=== PATIENT | female | born 1980 | race Caucasian/White ===

== ENCOUNTER 2016-04-01 11:20 | Outpatient (CLI) | payer MEDICAID | END 2016-04-01 11:21 | disposition home or self-care (01) | DX: Z36 Encounter for antenatal screening of mother (principal) ==

== ENCOUNTER 2016-04-14 11:15 | Outpatient (CLI) | payer SELFPAY | END 2016-04-14 11:16 | disposition home or self-care (01) | DX: Z36 Encounter for antenatal screening of mother (principal) ==

== ENCOUNTER 2016-05-12 11:41 | Outpatient (CLI) | payer MEDICAID | END 2016-05-12 11:42 | disposition home or self-care (01) | DX: Z34.82 Encounter for supervision of other normal pregnancy, second trimester (principal) ==

== ENCOUNTER 2016-06-02 12:16 | Outpatient (CLI) | payer MEDICAID | END 2016-06-02 12:17 | disposition home or self-care (01) | DX: Z36 Encounter for antenatal screening of mother (principal); O44.42 Low lying placenta NOS or without hemorrhage, second trimester ==

== ENCOUNTER 2016-06-18 15:51 | Emergency (ER) | payer MEDICAID | END 2016-06-18 17:12 | disposition home or self-care (01) | DX: O99.512 Diseases of the respiratory system complicating pregnancy, second trimester (principal); J01.00 Acute maxillary sinusitis, unspecified; Z3A.23 23 weeks gestation of pregnancy; Z77.120 Contact with and (suspected) exposure to mold (toxic) ==

== ENCOUNTER 2016-08-05 13:21 | Outpatient (CLI) | payer MEDICAID ==
[2016-08-05 14:35] LABS: HCT - HEMATOCRIT 36.7 % (37.0-47.0); HGB - HEMOGLOBIN 12.7 g/dL (12.0-16.0); MEAN CORPUSCULAR HEMOGLOBIN 32.4 pg (27.0-31.0); MEAN CORPUSCULAR HGB CONC 34.6 g/dL (32.0-36.0); MEAN CORPUSCULAR VOLUME 93.5 fL (81.0-99.0); MEAN PLATELET VOLUME 7.3 fL (7.9-10.8); RED BLOOD COUNT 3.93 10^6/uL (4.20-5.40); RED CELL DISTRIBUTION WIDTH 13.5 % (12.0-15.0); WHITE BLOOD COUNT 9.7 x10^3/uL (4.8-10.8)
== END 2016-08-05 13:22 | disposition home or self-care (01) ==
LOC: LAB 13:21
PROVIDERS: ATTEND Obstetrics & Gynecology
DX: Z34.90 Encounter for supervision of normal pregnancy, unspecified, unspecified trimester (principal)
CPT/HCPCS: 36415; 82950; 86850

== ENCOUNTER 2016-08-25 11:03 | Outpatient (CLI) | payer MEDICAID ==
--- NOTE | 2016-08-26 10:45 | Ultrasound Report ---
FOLLOWUP OB ULTRASOUND: 08/25/2016 Initial ultrasound was 06/02/2016. CLINICAL HISTORY: Expected gestational age by initial ultrasound is 31.7 weeks. Expected gestational age by LMP is 32.9 weeks. TECHNIQUE: Real-time scanning was performed with utility sales representative static images obtained. LAST MENSTRUAL PERIOD 01/08/2016 Clinical Age 32 weeks 6 days US Age 30 weeks 3 days EFW Hadlock 1526 g EFW% Hadlock 12% Heart Rate 131 bpm EDC 10/14/2016 US EDC 10/31/2016 BPD Hadlock 30 weeks 1 day; Mean mm 75.3 HC Hadlock 30 weeks 4 days; Mean mm 279.1 AC Hadlock 29 weeks 6 days; Mean mm 257.1 FL Hadlock 30 weeks 4 days; Mean mm 58.5 Presentation cephalic Placental Location posterior Cervical Length 3.8 cm Amniotic Fluid 12.18 cm FINDINGS: Single fetus is noted in vertex position. Composite gestational age by ultrasound today is 30.5 weeks. This gestational age is 1.2 weeks less than expected as calculated from patient's initial ultrasound of 06/02/2016. Estimated gestational weight is 15.26 grams. This is in the 10th percentile for expected gestational age. The weight and abdominal circumference parameters are at the very lower limits of normal for expected gestational age. Recommend patient be carefully followed for growth. Suggest a repeat ultrasound in 2-3 weeks for further evaluation. anatomy at the present time shows no significant abnormality. head, body, and spine appear within normal limits. heart was not evaluated in enough detail to accurately comment upon. The bladder was not demonstrated today. Placenta is posterior and low lying. It appears to partially cover the posterior half of the internal os. Recommend the placenta be evaluated with translabial and/or transvaginal ultrasound to exclude partial placenta previa. heart rate is 131 beats per minute and regular. Amount of amniotic fluid is 12.18. This is within the 27th percentile. Largest pocket of amniotic fluid is 4.74 cm. IMPRESSION: 1. SINGLE FETUS IS NOTED IN VERTEX POSITION. COMPOSITE GESTATIONAL AGE BY ULTRASOUND TODAY IS 30.5 WEEKS. THIS GESTATIONAL AGE IS 1.2 WEEKS LESS THAN EXPECTED CALCULATED FROM PATIENT'S PRECEDING ULTRASOUND. ALSO, THE WEIGHT AND ABDOMINAL CIRCUMFERENCE IS AT THE LOWER LIMITS OF NORMAL. RECOMMEND THIS GESTATION BE FOLLOWED CAREFULLY IN TERMS OF GROWTH. SUGGEST A REPEAT ULTRASOUND IN 2-3 WEEKS FOR FURTHER EVALUATION. 2. PLACENTA IS POSTERIOR AND LOW LYING. SOME OF THE IMAGES OF THE PLACENTAL LOCATION TODAY SUGGEST PARTIAL PLACENTA PREVIA DISCUSSED ABOVE. RECOMMEND WHEN PATIENT RETURNS FOR A REPEAT ULTRASOUND THAT THE PLACENTA POSITION BE REEVALUATED WITH TRANSLABIAL OR TRANSVAGINAL ULTRASOUND. 3. AMNIOTIC FLUID VOLUME INDEX IS 12.18. THIS IS WITHIN NORMAL LIMITS. MTDD
== END 2016-08-25 11:04 | disposition home or self-care (01) ==
LOC: DI 11:03
PROVIDERS: ATTEND Obstetrics & Gynecology
DX: Z36 Encounter for antenatal screening of mother (principal); O44.43 Low lying placenta NOS or without hemorrhage, third trimester; Z3A.30 30 weeks gestation of pregnancy
CPT/HCPCS: 76816

== ENCOUNTER 2016-09-01 12:24 | Outpatient (CLI) | payer MEDICAID ==
[2016-09-01 13:21] VITALS: BP 102/67
== END 2016-09-01 13:22 | disposition home or self-care (01) ==
LOC: WFO 12:24 → FBP 12:28 → WFO 13:22
PROVIDERS: ATTEND Obstetrics & Gynecology
DX: O36.8130 Decreased fetal movements, third trimester, not applicable or unspecified (principal); Z3A.34 34 weeks gestation of pregnancy
CPT/HCPCS: 59025

== ENCOUNTER 2016-09-12 11:36 | Outpatient (CLI) | payer MEDICAID ==
--- NOTE | 2016-09-12 13:31 | Ultrasound Report ---
OB FOLLOWUP: 09/12/2016 CLINICAL INDICATION: Size/date discrepancy. TECHNIQUE: Real-time scanning was performed with physician relations representative static images obtained. LAST MENSTRUAL PERIOD 01/08/2016 Clinical Age 35 weeks 3 days US Age 32 weeks 3 days EFW Hadlock 1922 g EFW% Hadlock 3% Heart Rate 146 bpm EDC 10/14/2016 US EDC 11/04/2016 BPD Hadlock 32 weeks 1 day; Mean mm 79.9 HC Hadlock 32 weeks 6 days; Mean mm 296.7 AC Hadlock 31 weeks 0 days; Mean mm 269.4 FL Hadlock 33 weeks 6 days; Mean mm 65.8 Presentation cephalic Placental Location posterior Cervical Length 3.7 cm Amniotic Fluid 16.8 cm FINDINGS: There is a single viable intrauterine gestation, in cephalic presentation. heart rate is 146 BPM. The placenta is post, without evidence of previa. Previously seen low-lying placenta has resolved. Amniotic fluid volume is normal, with an MATILDA of 16.8. By size, the fetus measures 32.5 weeks (34.1 weeks by initial sonogram). No free fluid or adnexal lesion is appreciated. IMPRESSION: SINGLE VIABLE INTRAUTERINE GESTATION, WITH EXPECTED GROWTH FROM MOST RECENT SONOGRAM OF 08/25/2016. RESOLUTION OF PREVIOUSLY SEEN LOW-LYING PLACENTA. MTDD
== END 2016-09-12 11:37 | disposition home or self-care (01) ==
LOC: DI 11:36
PROVIDERS: ATTEND Obstetrics & Gynecology
DX: O26.849 Uterine size-date discrepancy, unspecified trimester (principal)
CPT/HCPCS: 76816

== ENCOUNTER 2016-09-15 09:23 | Outpatient (CLI) | payer MEDICAID | END 2016-09-15 09:24 | disposition home or self-care (01) | LOC: LAB.R 09:23 | PROVIDERS: ATTEND Obstetrics & Gynecology | DX: Z36 Encounter for antenatal screening of mother (principal) | CPT/HCPCS: 87081 ==

== ENCOUNTER 2016-09-15 09:45 | Outpatient (CLI) | payer MEDICAID ==
[2016-09-15 10:19] VITALS: BP 111/66
--- NOTE | 2016-09-15 12:43 | Ultrasound Report ---
BIOPHYSICAL PROFILE: 09/15/2016 CLINICAL INDICATION: IUGR. FINDINGS: The fetus receives 2 points for motion, 2 points for tone, 2 points for breathing movements, and 2 points for amniotic fluid, yielding a biophysical profile of 8/8. heart rate is 141 BPM. Amniotic fluid volume is normal, with an MATILDA of 16.8. Umbilical arterial SD ratios are elevated for gestational age, with an average of 3.88 (95th percentile at 36 weeks ges tational age is 3.41). IMPRESSION: 1. AN 8/8 BIOPHYSICAL PROFILE. 2. ELEVATED SD RATIO FOR GESTATIONAL AGE, SUGGESTIVE OF UTEROPLACENTAL INSUFFICIENCY. THERE IS END DI ASTOLIC FLOW PRESENT. JOB #: [id number] EXT JOB #:[id number]
[2016-09-15] MEDS ORDERED: BETAMETHASONE 30 MG/5 ML VIAL IM SCH (16:00)
[2016-09-16] MEDS ORDERED: BETAMETHASONE 30 MG/5 ML VIAL IM SCH (16:00)
== END 2016-09-15 13:50 | disposition home or self-care (01) ==
LOC: FBP 09:45 → WFO 09:45 → FBP 09:47 → WFO 13:50
PROVIDERS: ATTEND Obstetrics & Gynecology
DX: O36.5930 Maternal care for other known or suspected poor fetal growth, third trimester, not applicable or unspecified (principal); O09.523 Supervision of elderly multigravida, third trimester; Z3A.36 36 weeks gestation of pregnancy; Z36 Encounter for antenatal screening of mother
CPT/HCPCS: 59025; 76819; 87081; 96372; 99211

== ENCOUNTER 2016-09-15 20:37 | Outpatient (CLI) | payer MEDICAID ==
[2016-09-15] MEDS ORDERED: BETAMETHASONE 30 MG/5 ML VIAL IM SCH (20:55)
[2016-09-15] MEDS ORDERED: BETAMETHASONE 30 MG/5 ML VIAL ONE (20:56)
[2016-09-15 22:16] VITALS: BP 90/54
[2016-09-16] MEDS ORDERED: BETAMETHASONE 30 MG/5 ML VIAL IM SCH (21:00)
== END 2016-09-15 21:15 | disposition home or self-care (01) ==
LOC: WFO 20:37 → FBP 20:39 → WFO 21:15
PROVIDERS: ATTEND Obstetrics & Gynecology
DX: O36.5930 Maternal care for other known or suspected poor fetal growth, third trimester, not applicable or unspecified (principal); Z3A.36 36 weeks gestation of pregnancy
CPT/HCPCS: 99211

== ENCOUNTER 2016-09-16 18:50 | Outpatient (CLI) | payer MEDICAID ==
[2016-09-16] MEDS ORDERED: BETAMETHASONE 30 MG/5 ML VIAL IM SCH (22:00)
== END 2016-09-16 19:50 | disposition home or self-care (01) ==
LOC: WFO 18:50 → FBP 18:50 → WFO 19:50
PROVIDERS: ATTEND Obstetrics & Gynecology
DX: O36.5930 Maternal care for other known or suspected poor fetal growth, third trimester, not applicable or unspecified (principal); Z3A.36 36 weeks gestation of pregnancy
CPT/HCPCS: 96372

== ENCOUNTER 2016-09-17 07:30 | Inpatient (IN) | payer MEDICAID ==
[2016-09-17] MEDS ORDERED: ONDANSETRON 4 MG/2 ML VIAL IVP PRN (12:03)
[2016-09-17] MEDS ORDERED: fentaNYL 100 MCG/2 ML VIAL IVP PRN (12:03)
--- NOTE | 2016-09-17 12:09 | HISTORY & PHYSICAL EXAMINATION ---
DATE OF ADMISSION: 09/17/2016 IDENTIFICATION: This is a 36-year-old G3, P2, 0-0-2 with a 36 and 2/7th weeks intrauterine . EDC is 10/13/2016 consistent with a 13 week ultrasound. HISTORY OF PRESENT ILLNESS: The patient is a patient of [facility] with whom we have been seeing throughout her course. The patient has had consistent visits with us. The patient had an ultrasound on at a followup secondary to low lying placenta noted at her anatomical survey. This has revealed a decreased abdominal circumference measuring with a mean mm of 257.1. The amniotic fluid index was normal at that time at 12.18. EFW was 1526 grams in the 12th percentile. Because of this study , another ultrasound was performed on 09/12. This revealed that the baby had an estimated weight of 1922 grams in the 3rd percentile. AC did not show any significant growth at a mean mm was 269.4. MATILDA is 16.8. Given these concerning findings I had patient go to the hospital on 09/15/2016 for a biophysical profile, nonstress test and umbilical arterial SD ratios. VTP was 8/8 and MATILDA 16.8. The SD ratio is, however, elevated at 3.88. I spoke to Dr. Favio Guevara, the on-call maternal medicine specialist at [facility], maternal medicine. After a brief description of my concerns with the ultrasound studies, Dr. Favio Guevara is in agreement with me that we should proceed with delivery. The patient, however, being at 36 weeks gestation and premature, would benefit from a course of steroids prior to induction of labor. I spoke to patient over the phone today and I explained to her my concern for intrauterine growth restriction as seen on abdominal circumference growth arrest. I discussed with patient my plan for a course of steroids with induction of labor after her steroids had been completed on 2016. She is in agreement with that and does understand that we are trying to prevent any issues with prematurity with the steroids. Earlier at today's visit, patient stated that the baby was moving well. She denied any vaginal bleeding or loss of fluid. The nonstress today was reactive in category 1. PAST MEDICAL HISTORY: None. She denies any high blood pressure, thyroid disease or diabetes. PAST SURGICAL HISTORY: 2012 replacement of joint of the left toe. ALLERGIES: NO KNOWN DRUG ALLERGIES. MEDICATIONS: vitamins. SOCIAL HISTORY: She denies any tobacco, alcohol, or illicit drug use. She is a former smoker and quit less than 1 year ago. The father of the baby is Aki and this is her first baby with him. Aki does not have any other children. The patient's other children are Sandrain a boy, and Meme a girl. This is a female fetus with anticipated name of Sharri. The patient's pharmacy of choice is [facility] in [place], [place]. Dr. Kinney is her residential housekeeper. The patient expects to breast feed and would like an epidural for pain control. PAST OBSTETRICAL HISTORY: Two term spontaneous vaginal deliveries at 37 and 38 weeks gestations. The largest baby weighed 7 pounds 4 ounces. There were issues of labor, but patient delivered at term. PAST GYNECOLOGIC HISTORY: She denies any abnormal Pap smears or sexually transmitted diseases. FAMILY HISTORY: Paternal aunt had breast cancer. REVIEW OF SYSTEMS: She denies any nausea, vomiting, fevers, chills, diarrhea or constipation. Negative unless otherwise stated. OBJECTIVE: VITAL SIGNS: Weight is 190 pounds, height is 62.5 inches, BMI is 34.2, blood pressure 126/72. GENERAL: The patient is a well-developed, well-nourished female in no apparent distress. She is alert and oriented x3. CARDIOVASCULAR: Rate is regular. No murmurs or rubs. PULMONARY: Lungs are clear to auscultation bilaterally. ABDOMEN: Gravid, nontender. Fundal height today is 33 cm. Urinalysis is negative. labs were administered. Chlamydia and gonorrhea negative. Pap smear on 04/01/2016 was negative, as well as screen for the high risk human papilloma virus. HIV negative. RPR nonreactive. Rubella immune. Hepatitis B surface antigen nonreactive. Her blood type is A positive and antibody screen is negative. anatomical survey shows a posterior placenta consistent with age and within normal limits. One hour GTT is 99. GBS has been performed today on 2016 and currently pending. ASSESSMENT: 1. A 36-year-old G3, P2-0-0-2 at 36 and 2/7th weeks intrauterine . 2. Intrauterine growth restriction with an abdominal circumference growth arrest. 3. Cervix remote from delivery with cervical exam on 09/15/2016 as closed, thick , and high. 4. Pending group B streptococcus. PLAN: 1. Patient is to do a course of steroids specifically with betamethasone 12 mg IM on 09/15/2016 and a repeat another dose in 24 hours. 2. Will start induction of labor on 09/17/2016 starting with cervical ripening with Cytotec 50 mcg 1 tablet sublingual x1. Will repeat in 4 hours if necessary. 3. Epidural for pain control. 4. Anticipate spontaneous vaginal delivery. JOB #: [id number] EXT JOB #:[id number] MTDD
--- NOTE | 2016-09-17 12:13 | PROVIDER PROGRESS NOTE ---
Labor Progress Note - Labor Progress Note Labor Progress Note/Additional Text: 36 yo with a 36w2d IUP IUGR with no AC growth in recent past Cervix remote from delivery Proceed to cervical ripening then pitocin when cervix effaced Anticipate vaginal delivery Carefully monitor FHTs given IUGR
[2016-09-17] MEDS ORDERED: miSOPROStol 100 MCG TABLET SL SCH (12:30)
[2016-09-17 13:14] LABS: BASOPHILS # (AUTO) 0.1 10^3/uL (0.0-0.1); BASOPHILS % (AUTO) 0.3 %; HCT - HEMATOCRIT 35.9 % (37.0-47.0); HGB - HEMOGLOBIN 12.3 g/dL (12.0-16.0); LYMPHOCYTES # (AUTO) 2.3 10^3/uL (1.5-3.5); LYMPHOCYTES % (AUTO) 13.3 %; MEAN CORPUSCULAR HEMOGLOBIN 32.4 pg (27.0-31.0); MEAN CORPUSCULAR HGB CONC 34.2 g/dL (32.0-36.0); MEAN CORPUSCULAR VOLUME 94.6 fL (81.0-99.0); MEAN PLATELET VOLUME 7.6 fL (7.9-10.8); MONOCYTES # (AUTO) 1.2 10^3/uL (0.0-1.0); MONOCYTES % (AUTO) 6.8 %; NEUTROPHILS # (AUTO) 13.4 10^3/uL (1.5-6.6); NEUTROPHILS % (AUTO) 79.6 %; RED BLOOD COUNT 3.79 10^6/uL (4.20-5.40); RED CELL DISTRIBUTION WIDTH 14.5 % (12.0-15.0); UNCORRECTED WHITE BLOOD COUNT 16.9 x10^3/uL; WHITE BLOOD COUNT 16.9 x10^3/uL (4.8-10.8)
--- NOTE | 2016-09-17 13:57 | PROVIDER PROGRESS NOTE ---
Labor Progress Note - Labor Progress Note Labor Progress Note/Additional Text: D/W the patient the series of events that has led us up to this point. Her 20 week FAS showed a low-lying placenta. This led to her 08/25/2016 U/S revealing a resolved low-lying placenta. However, this also revealed an EFW of 12%centile at 1526 gm and an MATILDA 12.18. A repeat U/S on 09/12/2016 showed an EFW 1922 gm at the 3%centile. MATILDA 16.8 cm. A 09/15/2016 BPP was 8/8 with umbilical artery SD ratios 3.88. The case was discussed with MFM who agrees that in addition, AC growth arrest has occurred as well as IUGR. I recommend to the patient to proceed to an induction of labor for the above. Will need to be gentle on the contraction pattern as the baby is less likely to tolerate labor. This also means that she is at increased risk of a delivery for intolerance of labor. Also the baby may be immature at 36 weeks but the steroids she received will help prevent prematurity issues. Patient's questions were answered to her satisfaction. She agrees to induction. Will proceed to induction of labor.
[2016-09-17] MEDS: SODIUM CHLORIDE FLUSH 0.9% 10 ML SYRINGE IVP PRN (15:23)
--- NOTE | 2016-09-17 18:58 | PROVIDER PROGRESS NOTE ---
Subjective - Prog Note Date Prog Note Date: 09/17/16 Prog Note Time: 18:56 - Subjective Pt reports feeling: No change (Patient lying in bed. Feeling some contractions. Patient swallowed cytotec. Good FM. No LOF.) Objective - Vital Signs/Intake & Output Vital Signs: Vital Signs x48h Temp Pulse Resp BP Pulse Ox 09/17/16 13:00 98.6 F 92 16 130/82 H 98 Intake & Output: Intake & Output 09/14/16 09/15/16 09/16/16 09/17/16 23:59 23:59 23:59 23:59 Intake Total 350 Balance 350 - Lab Results Fish Bones: 09/17/16 13:05 Other Labs: Lab Results x24hrs 09/17/16 Range/Units 13:05 WBC 16.9 H (4.8-10.8) x10^3/uL RBC 3.79 L (4.20-5.40) 10^6/uL Hgb 12.3 (12.0-16.0) g/dL Hct 35.9 L (37.0-47.0) % MCV 94.6 (81.0-99.0) fL MCH 32.4 H (27.0-31.0) pg MCHC 34.2 (32.0-36.0) g/dL RDW 14.5 (12.0-15.0) % Plt Count 235 (130-450) 10^3/uL MPV 7.6 L (7.9-10.8) fL Neut # 13.4 H (1.5-6.6) 10^3/uL Lymph # 2.3 (1.5-3.5) 10^3/uL Hoke # 1.2 H (0.0-1.0) 10^3/uL Eos # 0.0 (0.0-0.7) 10^3/uL Baso # 0.1 (0.0-0.1) 10^3/uL Absolute Nucleated RBC 0.00 x10^3/uL Nucleated RBCs 0.0 /100WBC
--- NOTE | 2016-09-17 19:03 | PROVIDER PROGRESS NOTE ---
Labor Progress Note - Uterine Monitoring Uterine Monitoring Mode: positive: External toco : Irregular Contraction Intensity: positive: Mild to moderate Uterine Resting Tone: positive: Soft - Monitoring Monitor Mode: positive: External ultrasound Heart Rate Variability: positive: Moderate (6-25 bmp) Accelerations: positive: Present, 15x15 Decelerations: positive: None Strip Review: positive: Category I - Vaginal Exam Dilation (in cm): Deferred - Labor Progress Note Labor Progress Note/Additional Text: 36 yo with a 36w3d IUP IUGR Cervix remote from delivery GBS negative S/p first dose of cytotec Will give cervidil overnight with PRN ambien Anticipate pitocin in AM Epidural PRN Labs, EKG, Meds, Allergy - Lab Results Fish Bones: 09/17/16 13:05 Other Lab Results: Lab Results x24hrs 09/17/16 Range/Units 13:05 WBC 16.9 H (4.8-10.8) x10^3/uL RBC 3.79 L (4.20-5.40) 10^6/uL Hgb 12.3 (12.0-16.0) g/dL Hct 35.9 L (37.0-47.0) % MCV 94.6 (81.0-99.0) fL MCH 32.4 H (27.0-31.0) pg MCHC 34.2 (32.0-36.0) g/dL RDW 14.5 (12.0-15.0) % Plt Count 235 (130-450) 10^3/uL MPV 7.6 L (7.9-10.8) fL Neut # 13.4 H (1.5-6.6) 10^3/uL Lymph # 2.3 (1.5-3.5) 10^3/uL [place] # 1.2 H (0.0-1.0) 10^3/uL Eos # 0.0 (0.0-0.7) 10^3/uL Baso # 0.1 (0.0-0.1) 10^3/uL Absolute Nucleated RBC 0.00 x10^3/uL Nucleated RBCs 0.0 /100WBC - Medications Medications: Ambulatory Orders Medication Instructions Recorded Confirmed Azithromycin [Zithromax] 250 mg PO DAILY #6 tablet 06/18/16 Mometasone Furoate [Nasonex] 1 spray NS BID #1 spray.pump 06/18/16 guaiFENesin/CODEINE [Robitussin AC] 5 - 10 ml PO Q6H PRN #120 ml 06/18/16 - Allergy Allergy: Allergies Allergy/AdvReac Type Severity Reaction Status Date / Time No Known Drug Allergies Allergy Verified 06/18/16 16:03 Azithromycin [Zithromax] 250 mg PO DAILY #6 tablet 06/18/16 Mometasone Furoate [Nasonex] 1 spray NS BID #1 spray.pump 06/18/16 guaiFENesin/CODEINE [Robitussin AC] 5 - 10 ml PO Q6H PRN #120 ml 06/18/16
[2016-09-17] MEDS ORDERED: DINOPROSTONE 10 MG SUPP VG SCH (19:04)
[2016-09-17] MEDS: FLUTICASONE NASAL SPRAY NAS SCH (21:03)
[2016-09-17] MEDS ORDERED: LIDOCAINE 1% 50 ML MDV ONE (21:16)
[2016-09-17] MEDS ORDERED: miSOPROStol 200 MCG TABLET ONE (21:16)
[2016-09-17] MEDS ORDERED: OXYTOCIN/LACTATED RINGERS 250 ML IV ONE (21:17)
[2016-09-17] MEDS ORDERED: LACTATED RINGERS 1,000 ML IV ONE (21:17)
[2016-09-17] MEDS ORDERED: TERBUTALINE 1 MG/ML VIAL SUBQ ONE (21:17)
[2016-09-17] MEDS ORDERED: MINERAL OIL LIGHT 10 ML MC ONE (21:17)
[2016-09-17] MEDS: ZOLPIDEM 5 MG TABLET PO PRN (21:40)
--- NOTE | 2016-09-18 11:49 | PROVIDER PROGRESS NOTE ---
Labor Progress Note - Uterine Monitoring Uterine Monitoring Mode: positive: External toco Contraction Intensity: positive: Mild to moderate Uterine Resting Tone: positive: Soft Other Uterine Monitoring: Irregular, rare - Monitoring Monitor Mode: positive: External ultrasound Heart Rate Variability: positive: Moderate (6-25 bmp) Accelerations: positive: Present, 15x15 Decelerations: positive: None Strip Review: positive: Category I - Vaginal Exam Dilation (in cm): 0-1 Effacement (%): TH Cervical Position: Posterior - Labor Progress Note Labor Progress Note/Additional Text: No overnight events. No significant change from last night's cervidil. status continues to be reassuring. Since cervix still remote from delivery, will try another dose of cytotec 50 mg SL x 1. Hopefully, can start pitocin when cervix effaces.
[2016-09-18] MEDS ORDERED: miSOPROStol 100 MCG TABLET PO SCH (12:00)
[2016-09-18] MEDS: ACETAMINOPHEN 325 MG TABLET PO SCH ×2 (15:33→15:34)
[2016-09-18] MEDS: FLUTICASONE NASAL SPRAY NAS SCH ×3 (15:34→22:10)
--- NOTE | 2016-09-18 17:03 | PROVIDER PROGRESS NOTE ---
Labor Progress Note - Uterine Monitoring Uterine Monitoring Mode: positive: External toco Contraction Frequency (min/apart): Q2-4 min Contraction Intensity: positive: Mild to moderate Uterine Resting Tone: positive: Soft - Monitoring Monitor Mode: positive: External ultrasound Heart Rate Variability: positive: Moderate (6-25 bmp) Accelerations: positive: Present, 15x15 Decelerations: positive: None Strip Review: positive: Category I - Vaginal Exam Dilation (in cm): 3-4 Effacement (%): 50-60 Station: -2 Cervical Position: Posterior - Labor Progress Note Labor Progress Note/Additional Text: Much improved CVE Will change from observation to inpatient status Start pitocin Epidural before AROM Expect Carefully watch strip given IUGR
[2016-09-18] MEDS ORDERED: LACTATED RINGERS 1,000 ML IV ONE (17:22)
[2016-09-18] MEDS: SODIUM CHLORIDE FLUSH 0.9% 10 ML SYRINGE IVP PRN (17:44)
[2016-09-18] MEDS: LACTATED RINGERS 1,000 ML IV SCH ×2 (17:44→22:16)
[2016-09-18] MEDS: OXYTOCIN/LACTATED RINGERS 250 ML IV SCH ×3 (17:45→22:00)
--- NOTE | 2016-09-18 20:45 | PROVIDER PROGRESS NOTE ---
Labor Progress Note - Uterine Monitoring Uterine Monitoring Mode: positive: External toco Contraction Intensity: positive: Moderate to strong Uterine Resting Tone: positive: Soft - Monitoring Monitor Mode: positive: External ultrasound Heart Rate Variability: positive: Moderate (6-25 bmp) Accelerations: positive: Present, 15x15 Decelerations: positive: None Strip Review: positive: Category I - Vaginal Exam Dilation (in cm): 3-4 Effacement (%): 60 Station: -3 Cervical Position: Posterior (Firm) - Labor Progress Note Labor Progress Note/Additional Text: 36 yo with a 36w3d IUP. IUGR in 3%centile, EFW 1299 gm. Improved cervical exam, was on 3 milliunits/min of pitocin. Moderate red blood on exam with 20-30 mL of blood on peripad; placenta abruption until proven otherwise. Reassuring heart tones; reactive and category 1. Hold pitocin until epidural established; SEED ANALYSIS LABORATORY ASSISTANT called to place epidural. Closely monitor strip. Will have on-call peds here for delivery given IUGR and placental abruption.
[2016-09-18] MEDS ORDERED: fent/BUPIV 2 MCG/0.125% 250 ML EP ONE (20:59)
[2016-09-18] MEDS ORDERED: ROPIVACAINE 0.5% PF 20 ML AMPULE EP ONE (21:30)
[2016-09-18] MEDS ORDERED: diphenhydrAMINE INJ 50 MG/ML VIAL IVP PRN (22:13)
[2016-09-18] MEDS ORDERED: NALBUPHINE 20 MG/ML AMP IVP PRN (22:13)
[2016-09-18] MEDS ORDERED: ONDANSETRON 4 MG/2 ML VIAL IVP PRN (22:13)
[2016-09-18] MEDS ORDERED: LACTATED RINGERS 500 ML IV ONE (22:13)
[2016-09-18] MEDS ORDERED: NALOXONE 0.4 MG/ML VIAL IVP PRN (22:13)
[2016-09-18] MEDS ORDERED: ePHEDrine 50 MG/ML VIAL IVP PRN (22:13)
[2016-09-18] MEDS ORDERED: METOCLOPRAMIDE 10 MG/2 ML VIAL IVP PRN (22:13)
[2016-09-18] MEDS ORDERED: fent/BUPIV 2 MCG/0.125% 250 ML EP PRN (22:13)
[2016-09-18] MEDS: ZOLPIDEM 5 MG TABLET PO PRN (22:41)
--- NOTE | 2016-09-18 23:14 | PROVIDER PROGRESS NOTE ---
Labor Progress Note - Uterine Monitoring Uterine Monitoring Mode: positive: External toco Contraction Intensity: positive: Moderate Uterine Resting Tone: positive: Soft - Monitoring Monitor Mode: positive: External ultrasound Heart Rate Variability: positive: Moderate (6-25 bmp) Accelerations: positive: Present, 15x15 Decelerations: positive: None Strip Review: positive: Category I - Vaginal Exam Dilation (in cm): 5 Effacement (%): 50 Station: -3 Cervical Position: Posterior - Labor Progress Note Labor Progress Note/Additional Text: 36 yo with a 36w3d IUP Improved cervical change but still very high Continue pitocin (4 milliunits/ min currently) Epidural in and working well Still continues to have moderately red bleeding per vagina; clinically abrupting Reassuring status IUGR AROM when cervix has descended Low threshold for delivery given IUGR and abruption
--- NOTE | 2016-09-19 00:18 | PROVIDER PROGRESS NOTE ---
Labor Progress Note - Uterine Monitoring Uterine Monitoring Mode: positive: External toco Contraction Intensity: positive: Moderate to strong Uterine Resting Tone: positive: Soft Other Uterine Monitoring: Hard to discern contractions on toco - Monitoring Monitor Mode: positive: External ultrasound Heart Rate Variability: positive: Moderate (6-25 bmp) Accelerations: positive: Present, 15x15 Decelerations: positive: None Strip Review: positive: Category I - Vaginal Exam Dilation (in cm): 5-6 Effacement (%): 60 Station: -3 Cervical Position: Posterior - Labor Progress Note Labor Progress Note/Additional Text: AROM- bloody fluid. More clot than blood per vagina. Continued reassuring tracing. Watch heart tones carefully Continue pitocin.
[2016-09-19] MEDS: LACTATED RINGERS 1,000 ML IV SCH ×2 (01:22→06:31)
--- NOTE | 2016-09-19 02:53 | PROVIDER PROGRESS NOTE ---
Labor Progress Note - Uterine Monitoring Contraction Intensity: positive: Moderate Uterine Resting Tone: positive: Soft Other Uterine Monitoring: Difficult to discern - Monitoring Monitor Mode: positive: External ultrasound Heart Rate Variability: positive: Moderate (6-25 bmp) Accelerations: positive: Present, 15x15 Strip Review: positive: Category I - Vaginal Exam Dilation (in cm): 6 Effacement (%): 60 Station: -3 Cervical Position: Posterior - Labor Progress Note Labor Progress Note/Additional Text: IUPC placed Reassuring status Pitocin 7 milliunits/ min Expect Epidural in place and working well
[2016-09-19] MEDS ORDERED: MINERAL OIL LIGHT 10 ML MC ONE (05:14)
[2016-09-19] MEDS: OXYTOCIN/LACTATED RINGERS 250 ML IV ONE ×2 (05:17→06:25)
[2016-09-19] MEDS ORDERED: HYDROCORTISONE 1% CREAM 28 GM TUBE PR PRN (05:41)
[2016-09-19] MEDS ORDERED: WITCH HAZEL/GLYCERIN 1 EACH MED..PAD TOP PRN (05:41)
[2016-09-19 05:47] LABS: BASOPHILS % (AUTO) 0.3 %; EOSINOPHILS % (AUTO) 0.1 %; HCT - HEMATOCRIT 31.6 % (37.0-47.0); HGB - HEMOGLOBIN 10.7 g/dL (12.0-16.0); LYMPHOCYTES # (AUTO) 3.1 10^3/uL (1.5-3.5); LYMPHOCYTES % (AUTO) 21.1 %; MEAN CORPUSCULAR HEMOGLOBIN 32.2 pg (27.0-31.0); MEAN CORPUSCULAR HGB CONC 33.8 g/dL (32.0-36.0); MEAN CORPUSCULAR VOLUME 95.2 fL (81.0-99.0); MEAN PLATELET VOLUME 7.7 fL (7.9-10.8); MONOCYTES % (AUTO) 6.7 %; NEUTROPHILS # (AUTO) 10.6 10^3/uL (1.5-6.6); NEUTROPHILS % (AUTO) 71.8 %; NUCLEATED RED BLOOD CELLS AUTO 0.1 /100WBC; RED BLOOD COUNT 3.31 10^6/uL (4.20-5.40); RED CELL DISTRIBUTION WIDTH 14.3 % (12.0-15.0); UNCORRECTED WHITE BLOOD COUNT 14.8 x10^3/uL; WHITE BLOOD COUNT 14.8 x10^3/uL (4.8-10.8)
--- NOTE | 2016-09-19 06:12 | DELIVERY NOTE ---
Delivery Note - Labor Labor: positive: Augmented by ARM, Induced by oxytocin, Other (Induction with cervidil and cytotec) - Infant Delivery Method Infant Delivery Method: positive: Spontaneous vaginal delivery - Presentation Presentation: positive: Vertex, ROP - right occiput posterior - Nuchal Cord Nuchal Cord: positive: None - Amniotic Fluid Description Amniotic Fluid Description: positive: Bloody - Episiotomy Type Episiotomy Type: positive: None - Delivery Outcome Delivery Outcome: positive: Livebirth - [place] sex: positive: Female : 8 : 8 - Cord Cord: positive: 3 vessels - Placenta Placenta: positive: Intact, Spontaneous - Estimated Blood Loss Estimated Blood Loss (in cc): 500 - Delivery Comments (Free Text/Narrative) Delivery Comments (Free Text/Narrative): 36 yo with a 36w4d IUP presented for induction of labor. IUGR diagnosed (EFW 1922 gm in the 3%centile) with arrest of AC growth. Patient had two doses of Beta-methasone prior to induction of labor. GBS negative. Patient given cytotec 50 mcg x 1, then cervidil x 1, then cytotec x 1, then pitocin. Moderate red blood per vagina during labor suggestive of abruption. strip reassuring throughout entire labor. AROM with bloody fluid. of a viable female fetus "Sharri", OP with compound left arm. No nuchal cord. Placenta delivered spontaneously, intact with 3VC. Placenta with multiple calcifications , no gross findings consistent with abruption. Perineum intact, repair not required. Patient was hypotensive after delivery of the placenta. BP decreased to 60's/40's. EBL 500 mL. Uterus firm, IV fluids pushed. Stat CBC obtained. Pressures improved after fluid bolus. Apgars 8/8, weight 1965 gm.
[2016-09-19] MEDS: CELECOXIB 100 MG CAPSULE PO SCH ×2 (07:21→21:22)
[2016-09-19] MEDS ORDERED: CELECOXIB 100 MG CAPSULE PO ONE (07:22)
[2016-09-19] MEDS: ACETAMINOPHEN 325 MG TABLET PO SCH ×4 (07:25→18:19)
[2016-09-19] MEDS: FLUTICASONE NASAL SPRAY NAS SCH (09:00)
[2016-09-19] MEDS: DOCUSATE SODIUM 100 MG CAPSULE PO SCH ×2 (11:05→21:22)
[2016-09-19] MEDS: HYDROcod/ACETAM 5/325 MG TABLET PO PRN ×3 (12:57→22:51)
[2016-09-19] MEDS: SIMETHICONE CHEW 80 MG TABLET PO PRN (21:22)
[2016-09-20] MEDS: ACETAMINOPHEN 325 MG TABLET PO SCH ×6 (01:00→21:48)
--- NOTE | 2016-09-20 07:50 | PROVIDER PROGRESS NOTE ---
Subjective - General Admit Date: 09/18/16 Procedure Date: 09/18/16 Post Op Days: 2 Procedure Performed: NVD w Epidural - Review of Systems Wound/Incisions: positive: Other (Epidural site tender appears to be normal) General: positive: No symptoms HEENT: positive: No symptoms Pulmonary: positive: No symptoms Cardiovascular: positive: No symptoms Gastrointestinal: positive: No symptoms Genitourinary: positive: Other (Nonfoul Lochia Rubra reported) Musculoskeletal: positive: Back pain (After 1st Epidural she reports intermitent lumbar pain and associates that pain w the epidural. She states this epidural seemed difficult and has more residual pain. No nuero changes reported.) Objective - Patient Data Intake & Output: Intake and Output Totals x24h 09/18/16 09/19/16 09/20/16 23:59 23:59 23:59 Intake Total 2700 Output Total 1000 Balance 1700 - Lab Results Lab Results: 09/19/16 05:40 - Current Medications Current Medications: Current Medications Generic Name Dose Route Start Last Admin Trade Name Ferminq PRN Reason Stop Dose Admin Acetaminophen 650 mg 09/17/16 13:00 09/20/16 04:24 Tylenol PO 650 mg Q6H OMAR Administration Acetaminophen/Hydrocodone Bitart 2 tab 09/19/16 05:41 09/19/16 22:51 [place] 5/325 PO 2 tab Q4HR PRN Administration PAIN Celecoxib 200 mg 09/19/16 09:00 09/19/16 21:22 Celebrex PO 200 mg BID OMAR Administration Docusate Sodium 100 mg 09/19/16 09:00 09/19/16 21:22 Colace 100mg Capsule PO 100 mg BID OMAR Administration Fluticasone Propionate 1 sprays 09/17/16 21:00 09/19/16 09:00 Flonase DEN Not Given BID OMAR Simethicone 80 mg 09/19/16 05:41 09/19/16 21:22 Mylicon PO 80 mg TID PRN Administration Gas Witch Lisa/Glycerin 1 each 09/19/16 05:41 09/19/16 21:30 Tucks TOP 1 each QID PRN Administration Hemorrhoids Zolpidem Tartrate 10 mg 09/17/16 19:04 09/18/16 22:41 Ambien PO 10 mg QPM PRN Administration Insomnia Physical Exam - Physical Exam General: positive: No acute distress HEENT: positive: Atraumatic, Moist mucous membranes Neck: positive: Supple w/out meningeal sx Cardiac: positive: Regular Rate, Regular Rhythm Resipratory: positive: Clear to ausultation harshil Abdomen: positive: Normal Bowel sounds Female : positive: Enlarged uterus (17 wk; Mild tenderness) Back: positive: Vertebral tenderness (Normal for sp Epidural) Extremities: positive: Normal ROM, Non tender Skin: positive: Warm and dry Neurologic: positive: Alert and Oriented X 3, Normal reflexes (patellar 1+&= Nl sensation and movement) Assessment/Plan - Assessment/Plan Assessment: Recovering normally from VD except for back tenderness and painful uterine cramps. Percocet at upper limits and pain control marginal. Uncertain if her complaints are a manifestation of chronic back pain, low pain threshold, or tylenol/oxycodone's poor analgesic effects on spastic pain. Heat, stretching and Motrin may be more effective. Education on pain and pain control necessary to help her become an active participant in her pain control. Plan: 1. Continue Hospital Stay 2. DC Percocett 3. Motrin 600mg QID 4. Movement, Stretching & Jacuzzi Bath 5. Anesthesia eval & opinion on post epidural care 6. PT Consult 7. Nursing Education of Pain and pain control. 8. Usual post VD support care 9. If motrin ineffective we will restart heplock and begin periodic IVP Toradol
[2016-09-20] MEDS: SIMETHICONE CHEW 80 MG TABLET PO PRN ×2 (08:57→14:55)
[2016-09-20] MEDS: IBUPROFEN 600 MG TABLET PO SCH ×3 (08:57→21:08)
[2016-09-20] MEDS: DOCUSATE SODIUM 100 MG CAPSULE PO SCH ×2 (08:57→21:08)
--- NOTE | 2016-09-20 17:30 | PROVIDER PROGRESS NOTE ---
Subjective - Prog Note Date Prog Note Date: 09/20/16 - Subjective Pt reports feeling: Improved Subjective: Was asked by Rosa Bentley RN, to check on this patient who had an epidural placed 09/18/16 by Yordy Hazel CRNA. Rosa was concerned about complaints of back pain. Spoke with patient at bedside in the presence of her family. Pt described that this was her 3rd epidural for labor and since the time of her 1st epidural over a decade ago which required multiple attempts, she has had off and on discomfort in her back. She said she had notified Yordy of this issue prior to epidural placement. I examined the patient's back and asked her to point to the area of discomfort. She pointed along a right paraspinal band distant from the site of epidural placement. I then palpated her lumbar spine and she then complained of discomfort and pain at the exact spot of the epidural placement. The area was non-erythematous and without induration and felt of normal tissue. Light touch was not particularly uncomfortable but deep palpation was more so. She said the discomfort wasn't that bad today. I explained to the patient that back pain is not uncommon with epidural placement for labor and is more likely when multiple passes are made which was the case for her placement. I also explained that it can exacerbate pre-existing chronic back pain which she had from her first epidural. She has been afebrile and her WBC has downtrended since her initial admission. There is low suspicion for any epidural abscess. She has never had imaging of her back since her initial chronic back pain began after her first epidural and I said this is something that could be consider if she wanted further evaluation. She stated that she has been dealing with it for many years and is doing fine with just taking PRN tylenol or ibuprofen. The pt said she had no further questions or concerns and thanked me for stopping in to evaluate her. Objective - Vital Signs/Intake & Output Vital Signs: Vital Signs x48h Temp Pulse Resp BP Pulse Ox 09/20/16 17:03 36.5 C 82 18 107/52 L 100 09/20/16 12:46 36.9 C 90 16 121/66 100 Intake & Output: Intake & Output 09/17/16 09/18/16 09/19/16 09/20/16 23:59 23:59 23:59 23:59 Intake Total 350 2700 Output Total 1000 Balance 350 1700 - Lab Results Fish Bones: 09/19/16 05:40
--- NOTE | 2016-09-20 18:22 | Discharge Plan ---
Discharge Plan Disposition: 01 Home, Self Care Condition: Good Diet: Regular Activity Restrictions: Activity as Tolerated Shower Restrictions: No Driving Restrictions: No Weight Bearing: Full Weight Additional Instructions or Follow Up instructions: Review breast feeding; Call back for fever (100.5 0r greater), foul discharge, excessive bleeding No Smoking: If you smoke, Please STOP! Call for help. Follow-up with: Yuli Degroot DO [Provider Admit Priv/Credential] -
[2016-09-20] MEDS: FLUTICASONE NASAL SPRAY NAS SCH (21:47)
[2016-09-21] MEDS: IBUPROFEN 600 MG TABLET PO SCH ×3 (02:48→14:52)
[2016-09-21] MEDS: ACETAMINOPHEN 325 MG TABLET PO SCH (09:33)
[2016-09-21] MEDS: DOCUSATE SODIUM 100 MG CAPSULE PO SCH (09:33)
[2016-09-21] MEDS: SIMETHICONE CHEW 80 MG TABLET PO PRN (09:34)
[2016-09-21 14:51] VITALS: BP 129/64
--- NOTE | 2016-09-21 17:58 | Labor Flowsheet ---
Labor Flowsheet Datetime Report Generated by CPN: 09/21/2016 17:57 Datetime: 09/21/2016 14:48 VITAL SIGNS NBP Sys/Shirley/Mean (mmHg): 129 : 64 : 81 Pulse: 91 Temperature (F): 96.6 Temperature (C): 35.9 Temperature (C): 35.9 Datetime: 09/21/2016 09:40 SpO2 (%): 100 Datetime: 09/19/2016 05:15 Stage of : Recovery Datetime: 09/19/2016 05:13 MEDICATIONS Pitocin (milliunits): Discontinued Datetime: 09/19/2016 05:03 Pushing Progress: Descent with Pushing; Presenting Part Visible Datetime: 09/19/2016 05:02 Patient Position/Activity: Semi-Fowlers Patient Care Comments: lithotomy Datetime: 09/19/2016 05:00 ASSESSMENT A Monitor Mode: External US FHR Baseline Rate : 140 FHR Baseline Changes: No Baseline Change Variability: Moderate 6-25 bpm Accelerations: 15X15 Decelerations: Early; Variable Category: Category II Comments: fhr to 110-120s with pushes with return to baseline. LaborFlag: Labor Datetime: 09/19/2016 04:38 Respirations: 20 Temperature Route: Oral Datetime: 09/19/2016 04:30 Resting Tone IUP (mmHg): 15 Intensity IUP (mmHg): 80-100 Datetime: 09/19/2016 04:26 Medication Comments: per md request STAGE 2 Pushing: Coached on Pushing Datetime: 09/19/2016 04:25 COMMUNICATION Communication: Provider at Bedside Communication Comments: Dr. Buemer here Datetime: 09/19/2016 04:23 I/O Interventions: Straight Cath (ml) @ 200 Datetime: 09/19/2016 04:15 UTERINE ACTIVITY Monitor Mode: Internal Frequency (min): 2-3 Quality: Strong Duration (sec): 80-120 Pattern: Normal: <= 5 Contractions in 10 Minutes Resting Tone (Palpate): Relaxed Datetime: 09/19/2016 04:08 Pushing Position: Pushing with Contractions Datetime: 09/19/2016 04:00 Actions for Decelerations: IV Bolus Datetime: 09/19/2016 03:57 VAGINAL EXAM Dilatation (cm): 10.0 Effacement (%): 100 Station: 2 Exam by: [email or web address] Cervix, Position: Anterior Provider Reviewed Strip: Yes Provider Notified (Name): Dr. Degroot Datetime: 09/19/2016 02:54 Hygiene: Naz Care; Underpad Changed; Peripad Changed Datetime: 09/19/2016 02:47 Contraction Comments: iupc placed by dr. Degroot Datetime: 09/19/2016 02:45 Monitor Interventions for UA: Ball Ground Adjusted Pitocin Checklist: At Least 1 Acceleration of 15 bpm x 15 Seconds in 30 Minutes or Adequate Variabi lity; No More than 1 Late Deceleration Occurred in Past 30 Minutes; No More than 2 Variable Decelerat ions > 60 Seconds in Duration and decreasing >60 bpm in 30 minutes; No More than 5 Uterine Contractio ns in 10 Minutes for any 20 Minute Interval; Uterus Palpates Soft between Contractions; IUPC Resting Tone less than 25 mmHg Datetime: 09/19/2016 00:15 Membranes Ruptured Date/Time: 09/19/2016 00:08 Membranes Rupture Method: Artificial Amniotic Fluid Color: Bloody Amniotic Fluid Amount: Small Amniotic Fluid Odor: Normal Vaginal Bleeding: Moderate Datetime: 09/18/2016 21:47 Epidural Procedure: Loading Dose Datetime: 09/18/2016 21:15 Membrane Status: Intact PROCEDURE TIME OUT Procedure Verify: Correct Patient Identity; Correct Side and Site are Marked; Accurate Procedure Co nsent Form; Agreement on Procedure to be Done; Correct Patient Position Epidural Positioning: Sitting Datetime: 09/18/2016 21:03 Anesthesia Interview: E Datetime: 09/18/2016 21:01 Anesthesia Comments: anesthesia here obtaining consent and interviewing pt. Datetime: 09/18/2016 20:56 ANESTHESIA Anesthesia Plans: Epidural Datetime: 09/18/2016 20:48 PATIENT CARE IV/Blood Work: IV Bolus Started Datetime: 09/18/2016 20:20 Notification Reason: Status Update; Bleeding Datetime: 09/18/2016 17:00 Strip Reviewed by: Dr. Mikayla Datetime: 09/18/2016 15:30 Labor/Induction: Cervical Ripening Datetime: 09/18/2016 12:18 Cervical Ripening Agents: Cytotec @ 50 Plan of Care: Plan of Care Discussed Datetime: 09/18/2016 06:30 Vital Sign Comments: Datetime: 09/18/2016 04:30 Monitor Interventions for FHR: Ultrasound Adjusted PAIN Pain Scale: 0 Pain Presence: None/Denies Pain Type: N/A Datetime: 09/18/2016 02:30 Pain Assessment Comments: sleeping Datetime: 09/17/2016 21:40 Cervix, Consistency: Moderate Presentation 'A': Cephalic Membrane Comments: Intact Vaginal Exam Comments: Cervidil placed ROBERSON'S SCORE Dilatation (cm): Closed Effacement: 0-30_ effaced Station: minus 2 Consistency: Medium Position: Midposition Total Roberson's Score: 3 : 0-4 = Unfavorable cervix MATERNAL ASSESSMENT Level of Consciousness: Fully Conscious DTR's/Clonus: DTRs 2+ Headache: Denies Breath Sounds, Left: Clear and Equal Breath Sounds, Right: Clear and Equal Nausea/Vomiting: Denies RUQ Epigastric Pain: Denies PRE-INDUCTION CHECKLIST Orders on Chart: Yes H Record Available: Yes Indication Charted: Yes Adequate Pelvis Charted: Yes EFW Documented: Yes Gestational Age Documented: Yes Consent Signed and on Chart: Yes Provider with C/S Priv Aware: Yes Status of Cervix Documented: Yes Presentation Documented: Yes 30min of Monitoring Prior: Yes 2 Accels of 15X15 Present: Yes No Late Decels Present: Yes Less than 2 Variable Decels: Yes Pt Meets Criteria for Induction: Yes Comfort Measures: Breathing/Relaxation; Hot Shower/Tub/Spa; Family Support TEACHING Instructional Method: Verbal Medications: Cervical Ripening Datetime: 09/17/2016 19:01 Oxygen Method: Room Air
--- NOTE | 2016-09-22 07:25 | DISCHARGE SUMMARY ---
DATE OF ADMISSION: 09/18/2016 DATE OF DISCHARGE: 09/21/2016 DIAGNOSES: 1. Intrauterine growth restriction. 2. 36 week 2 day gestational age. 3. Induction after ripening. 4. Advanced maternal age. PROCEDURES: Vaginal delivery (accomplished by Dr. Degroot) with a right occiput posterior presentation of a living female . COMPLICATIONS: None. HISTORY: The patient is a 36-year-old 3, para 2 who was admitted at 36 weeks 2 days with intr auterine growth restriction documented by ultrasound. Her EDC was 10/13, confirmed with 13 week ultra sound. On 08/25, on a repeat ultrasound to confirm placental location, the fetus was noted to be 1526 grams, the 12th percentile for growth. On a repeat ultrasound 09/12, the fetus had been found to sin k to the 3rd percentile at 1922 grams. Amniotic fluid index and biophysical profile were normal. Cons ultation was called with SONJA Hamilton at [facility], and delivery was recommended due to lac k of progression of abdominal circumference. A course of betamethasone was given first. There was no obvious cause for growth restriction since the patient was a nonsmoker and had normal nutrition. Refe saskia Degroot's H and P. HOSPITAL COURSE: The patient was admitted and given the first course of betamethasone. She was begun on Cytotec 50 mcg for 2 doses. The patient began to contract. These contractions were then augmented. Throughout, the tracing remained reassuring. On 09/19, the patient delivered a living female i nfant with an occiput presentation and a compound left arm. There was no cord involvement. Perineum w as intact with 50 mL blood loss. weight was 1965 grams and Apgars of 8 and 8. There was a perio d of hypotension after delivery of placenta, but this resolved with IV fluids. Initial admission hemo globin was 12.3 and immediately after delivery 10.7. Platelets were 219. The patient rapidly advanced to full diet and activity. She breastfed without difficulty. By post-del carolyn day #2, she felt well and was doing well. She desired discharge. Discharge instructions were reviewed inclusive of call back for fever, excessive bleeding, foul disch arge or calf pain. DISCHARGE MEDICATIONS: Motrin 600 q.6h. for 1-week course and refill as needed, vitamins wit h iron and ferrous sulfate 325 b.i.d. for 60 days. FOLLOWUP: She will be seen in 6 weeks for routine followup. Pediatric followup is arranged with her p ediatrician. JOB #: [id number] EXT JOB #:[id number]
== END 2016-09-21 15:40 | disposition home or self-care (01) | DRG 775 ==
LOC: FBP 11:59 → OBSVTOIN 09-18 17:03
PROVIDERS: ADMIT Obstetrics & Gynecology; ATTEND Obstetrics & Gynecology
PROC: 10E0XZZ Delivery of Products of Conception, External Approach (ICD-10-PCS; principal; 2016-09-19)
PROC: 10907ZC Drainage of Amniotic Fluid, Therapeutic from Products of Conception, Via Natural or Artificial Opening (ICD-10-PCS; 2016-09-19)
DX: O36.5930 Maternal care for other known or suspected poor fetal growth, third trimester, not applicable or unspecified (principal); O32.2XX0 Maternal care for transverse and oblique lie, not applicable or unspecified; O99.89 Other specified diseases and conditions complicating pregnancy, childbirth and the puerperium; I95.9 Hypotension, unspecified; Z3A.36 36 weeks gestation of pregnancy; Z37.0 Single live birth
CPT/HCPCS: 36415; 59200; 59412; 85025

== ENCOUNTER 2017-09-14 10:24 | Outpatient (CLI) | payer MEDICAID ==
[2017-09-14 18:00] LABS: BASOPHILS % (AUTO) 0.9 %; EOSINOPHILS # (AUTO) 0.1 10^3/uL (0.0-0.7); EOSINOPHILS % (AUTO) 1.4 %; HGB - HEMOGLOBIN 12.8 g/dL (12.0-16.0); LYMPHOCYTES # (AUTO) 1.7 10^3/uL (1.5-3.5); LYMPHOCYTES % (AUTO) 42.2 %; MEAN CORPUSCULAR HGB CONC 33.7 g/dL (32.0-36.0); MEAN CORPUSCULAR VOLUME 95.1 fL (81.0-99.0); MEAN PLATELET VOLUME 8.1 fL (7.9-10.8); MONOCYTES # (AUTO) 0.4 10^3/uL (0.0-1.0); MONOCYTES % (AUTO) 9.4 %; NEUTROPHILS # (AUTO) 1.8 10^3/uL (1.5-6.6); NEUTROPHILS % (AUTO) 46.1 %; PLT - PLATELET COUNT 270 10^3/uL (130-450)
[2017-09-14 19:15] LABS: ALBUMIN 4.1 g/dL (3.2-5.5); ALBUMIN/GLOBULIN RATIO 1.2 (1.0-2.2); BILIRUBIN,TOTAL 0.7 mg/dL (0.2-1.0); CALCIUM 9.2 mg/dL (8.5-10.3); CREATININE 0.6 mg/dL (0.4-1.0); TOTAL PROTEIN 7.5 g/dL (6.7-8.2)
== END 2017-09-14 10:25 | disposition home or self-care (01) ==
LOC: LAB.S 10:24
PROVIDERS: ATTEND Nurse Practitioner Family
DX: Z13.1 Encounter for screening for diabetes mellitus (principal); Z13.228 Encounter for screening for other metabolic disorders; Z13.29 Encounter for screening for other suspected endocrine disorder; Z13.0 Encounter for screening for diseases of the blood and blood-forming organs and certain disorders involving the immune mechanism
CPT/HCPCS: 36415; 80053; 84443; 85025

== ENCOUNTER 2019-08-31 11:00 | Outpatient (CLI) | payer SELFPAY | END 2019-08-31 23:59 | disposition home or self-care (01) | LOC: COV 11:00 | PROVIDERS: ATTEND Family Medicine | DX: Z11.59 Encounter for screening for other viral diseases (principal) ==

== ENCOUNTER 2020-05-29 10:14 | Outpatient (CLI) | payer OTHER ==
[2020-05-29 14:12] LABS: BASOPHILS % (AUTO) 0.8 %; EOSINOPHILS # (AUTO) 0.1 10^3/uL (0.0-0.7); EOSINOPHILS % (AUTO) 1.5 %; HCT - HEMATOCRIT 35.6 % (37.0-47.0); HGB - HEMOGLOBIN 11.6 g/dL (12.0-16.0); LYMPHOCYTES # (AUTO) 1.7 10^3/uL (1.5-3.5); LYMPHOCYTES % (AUTO) 42.3 %; MEAN CORPUSCULAR HGB CONC 32.6 g/dL (32.0-36.0); MEAN CORPUSCULAR VOLUME 98.3 fL (81.0-99.0); MEAN PLATELET VOLUME 9.8 fL (7.9-10.8); MONOCYTES # (AUTO) 0.4 10^3/uL (0.0-1.0); NEUTROPHILS # (AUTO) 1.8 10^3/uL (1.5-6.6); NEUTROPHILS % (AUTO) 46.1 %; PLT - PLATELET COUNT 309 10^3/uL (130-450); RED BLOOD COUNT 3.62 10^6/uL (4.20-5.40); WHITE BLOOD COUNT 3.9 x10^3/uL (4.8-10.8)
[2020-05-29 15:14] LABS: CALCIUM 8.7 mg/dL (8.5-10.3); CREATININE 0.5 mg/dL (0.4-1.0); POTASSIUM 4.1 mmol/L (3.5-5.0)
[2020-05-29 15:32] LABS: THYROID STIMULATING HORMONE 2.1 uIU/mL (0.34-5.60)
== END 2020-05-29 10:15 | disposition home or self-care (01) ==
LOC: LAB.S 10:14
PROVIDERS: ATTEND Registered Nurse
DX: F32.9 Major depressive disorder, single episode, unspecified (principal); Z79.899 Other long term (current) drug therapy
CPT/HCPCS: 36415; 80048; 84443; 85025

== ENCOUNTER 2020-07-03 12:35 | Outpatient (CLI) | payer OTHER ==
[2020-07-03 15:06] LABS: BASOPHILS % (AUTO) 0.6 %; EOSINOPHILS # (AUTO) 0.1 10^3/uL (0.0-0.7); HCT - HEMATOCRIT 35.7 % (37.0-47.0); HGB - HEMOGLOBIN 11.9 g/dL (12.0-16.0); LYMPHOCYTES # (AUTO) 2.5 10^3/uL (1.5-3.5); LYMPHOCYTES % (AUTO) 47.8 %; MEAN CORPUSCULAR HEMOGLOBIN 32.3 pg (27.0-31.0); MEAN CORPUSCULAR HGB CONC 33.3 g/dL (32.0-36.0); MEAN PLATELET VOLUME 9.5 fL (7.9-10.8); MONOCYTES # (AUTO) 0.4 10^3/uL (0.0-1.0); MONOCYTES % (AUTO) 6.9 %; NEUTROPHILS # (AUTO) 2.3 10^3/uL (1.5-6.6); NEUTROPHILS % (AUTO) 43.5 %; PLT - PLATELET COUNT 317 10^3/uL (130-450); RED BLOOD COUNT 3.68 10^6/uL (4.20-5.40); RED CELL DISTRIBUTION WIDTH 11.7 % (12.0-15.0); RETICULOCYTE COUNT % (AUTO) 1.09 % (0.5-2.3); WHITE BLOOD COUNT 5.2 x10^3/uL (4.8-10.8)
[2020-07-03 15:36] LABS: % IRON SATURATION 18 % (20-50); IRON 63 ug/dL (28-170); TOTAL IRON BINDING CAPACITY 358 ug/dL (250-450); TRANSFERRIN 256 mg/dL (192-382)
[2020-07-03 15:41] LABS: FERRITIN 18.1 ng/mL (11.0-306.8)
[2020-07-03 15:44] LABS: FOLATE 15.76 ng/mL (5.90 - >24.8)
== END 2020-07-03 12:36 | disposition home or self-care (01) ==
LOC: LAB.S 12:35
PROVIDERS: ATTEND Registered Nurse
DX: D64.9 Anemia, unspecified (principal); R53.83 Other fatigue
CPT/HCPCS: 36415; 81599; 82607; 82728; 82746; 83020; 83540; 84466; 85014; 85018; 85025; 85041; 85045

== ENCOUNTER 2022-05-19 19:36 | Emergency (ER) | payer OTHER ==
[2022-05-19 20:07] LABS: BASOPHILS # (AUTO) 0.1 10^3/uL (0.0-0.1); BASOPHILS % (AUTO) 0.6 %; EOSINOPHILS # (AUTO) 0.1 10^3/uL (0.0-0.7); EOSINOPHILS % (AUTO) 0.8 %; HCT - HEMATOCRIT 40.2 % (37.0-47.0); HGB - HEMOGLOBIN 13.7 g/dL (12.0-16.0); LYMPHOCYTES # (AUTO) 2.5 10^3/uL (1.5-3.5); MEAN CORPUSCULAR HEMOGLOBIN 32.4 pg (27.0-31.0); MEAN CORPUSCULAR HGB CONC 34.1 g/dL (32.0-36.0); MEAN PLATELET VOLUME 9.4 fL (7.9-10.8); MONOCYTES # (AUTO) 0.6 10^3/uL (0.0-1.0); MONOCYTES % (AUTO) 7.1 %; NEUTROPHILS # (AUTO) 5.1 10^3/uL (1.5-6.6); NEUTROPHILS % (AUTO) 61.4 %; PLT - PLATELET COUNT 335 10^3/uL (130-450); RED BLOOD COUNT 4.23 10^6/uL (4.20-5.40); RED CELL DISTRIBUTION WIDTH 12.7 % (12.0-15.0); WHITE BLOOD COUNT 8.3 x10^3/uL (4.8-10.8)
[2022-05-19 20:08] LABS: BILIRUBIN,URINE NEGATIVE (NEGATIVE); GLUCOSE, URINE (UA) NEGATIVE (NEGATIVE); KETONES,URINE (UA) 15 mg/dL (NEGATIVE); LEUKOCYTE ESTERASE, URINE NEGATIVE (NEGATIVE); NITRITE,URINE NEGATIVE (NEGATIVE); OCCULT BLOOD,URINE LARGE (NEGATIVE); PROTEIN,URINE TRACE mg/dL (NEGATIVE); UROBILINOGEN,URINE 0.2 (NORMAL) E.U./dL (NORMAL)
[2022-05-19 20:11] LABS: CLARITY,URINE CLEAR (CLEAR); HCG UR QUAL NEGATIVE
[2022-05-19 20:18] LABS: ALBUMIN 4.8 g/dL (3.2-5.5); ALBUMIN/GLOBULIN RATIO 1.5 (1.0-2.2); BILIRUBIN,TOTAL 0.4 mg/dL (0.2-1.0); CALCIUM 9.2 mg/dL (8.5-10.3); CREATININE 0.6 mg/dL (0.4-1.0); POTASSIUM 3.8 mmol/L (3.5-5.0); TOTAL PROTEIN 8.1 g/dL (6.7-8.2)
[2022-05-19 20:33] LABS: BACTERIA,URINE Few /HPF (None Seen); MUCUS,URINE Few Strands; SQUAMOUS EPITHELIAL CELL,UR FEW Squamous (<= Few); WBC,URINE 0-3 /HPF (0-5)
[2022-05-19] MEDS ORDERED: SODIUM CHLORIDE 0.9% 1,000 ML IV STA ×2 (20:43→23:25)
[2022-05-19] MEDS ORDERED: KETOROLAC 15 MG/ML VIAL IVP STA (20:43)
[2022-05-19] MEDS ORDERED: ONDANSETRON 4 MG/2 ML VIAL IVP STA ×2 (20:43→23:25)
--- NOTE | 2022-05-19 20:46 | ED Physician Documentation ---
History of Present Illness - Stated complaint Stated Complaint: VOMITING - Chief complaint Chief Complaint: Abd Pain - History obtained from History obtained from: Patient - Additonal information Additional information: 41-year-old woman with history of kidney stones presents with sudden onset left upper quadrant pain radiating to the left flank starting this evening that is constant, severe, associated with nonbloody nonbilious nausea and vomiting. Denies fever, cough, urinary symptoms, diarrhea. Review of Systems Constitutional: denies: Fever, Chills Cardiac: denies: Chest pain / pressure Respiratory: denies: Dyspnea, Cough GI: reports: Abdominal Pain, Nausea, Vomiting. denies: Diarrhea : denies: Dysuria, Frequency, Hematuria PD PAST MEDICAL HISTORY - Past Surgical History Past Surgical History: Yes - Present Medications Home Medications: Ambulatory Orders Medication Instructions Recorded Confirmed Azithromycin [Zithromax] 250 mg PO DAILY #6 tablet 06/18/16 Mometasone Furoate [Nasonex] 1 spray NS BID #1 spray.pump 06/18/16 guaiFENesin/CODEINE [Robitussin AC] 5 - 10 ml PO Q6H PRN #120 ml 06/18/16 Ondansetron Odt [Zofran Odt] 4 mg TL Q6H PRN #10 tablet 05/20/22 Oxycodone HCl/Acetaminophen 1 each PO Q4H PRN #10 tablet 05/20/22 [Percocet 10-325 mg Tablet] - Allergies Allergies/Adverse Reactions: Allergies Allergy/AdvReac Type Severity Reaction Status Date / Time No Known Drug Allergies Allergy Verified 05/19/22 19:41 - Social History Does the pt smoke?: No Smoking Status: Former smoker Does the pt drink ETOH?: No Does the pt have substance abuse?: No - Immunizations Immunizations are current?: Yes - POLST Patient has POLST: No PD ED PE NORMAL - Vitals Vital signs reviewed: Yes - General General: Alert and oriented X 3, Other (mderate distress, writhing in bed) - HEENT HEENT: Atraumatic, PERRL, EOMI - Neck Neck: Supple, no meningeal sign - Cardiac Cardiac: RRR - Respiratory Respiratory: No respiratory distress, Clear bilaterally - Abdomen Abdomen: Other (LUQ ttp) - Back Back: Other (L CVA ttp. R CVA nontender) - Derm Derm: Normal color, Warm and dry - Neuro Neuro: No motor deficit, No sensory deficit - Psych Psych: Normal mood, Normal affect Results - Vitals Vitals: Vital Signs - 24 hr 05/19/22 05/19/22 05/19/22 19:41 21:18 22:04 Temperature 36.5 C Heart Rate 75 72 Respiratory 18 15 Rate Blood Pressure 150/90 H 140/106 H O2 Saturation 100 100 05/19/22 05/19/22 05/19/22 22:28 23:13 23:42 Temperature Heart Rate 85 78 97 Respiratory 21 14 19 Rate Blood Pressure 158/88 H 140/78 H 124/84 H O2 Saturation 100 99 98 Oxygen O2 Source Room air - Labs Labs: Laboratory Tests 05/19/22 05/19/22 05/19/22 19:52 20:01 20:01 WBC 8.3 RBC 4.23 Hgb 13.7 Hct 40.2 MCV 95.0 MCH 32.4 H MCHC 34.1 RDW 12.7 Plt Count 335 MPV 9.4 Neut # (Auto) 5.1 Lymph # (Auto) 2.5 [place] # (Auto) 0.6 Eos # (Auto) 0.1 Baso # (Auto) 0.1 Absolute Nucleated RBC 0.00 Nucleated RBC % 0.0 Sodium 138 Potassium 3.8 Chloride 106 Carbon Dioxide 24 Anion Gap 8.0 BUN 10 Creatinine 0.6 Estimated GFR (MDRD) 111 Glucose 107 H Calcium 9.2 Total Bilirubin 0.4 AST 23 ALT 22 Alkaline Phosphatase 55 Total Protein 8.1 Albumin 4.8 Globulin 3.3 Albumin/Globulin Ratio 1.5 Lipase 36 Urine Color YELLOW Urine Clarity CLEAR Urine pH 6.0 Ur Specific [place] >=1.030 H Urine Protein TRACE Urine Glucose (UA) NEGATIVE Urine Ketones 15 H Urine Occult Blood LARGE H Urine Nitrite NEGATIVE Urine Bilirubin NEGATIVE Urine Urobilinogen 0.2 (NORMAL) Ur Leukocyte Esterase NEGATIVE Urine RBC 11-25 H Urine WBC 0-3 Ur Squamous Epith Cells FEW Squamous Urine Bacteria Few Urine Mucus Few Strands Ur Microscopic Review INDICATED Urine Culture Comments NOT INDICATED Urine HCG, Qual NEGATIVE PD Medical Decision Making - ED course ED course: 41yF with history of kidney stones p/w sudden onset sharp severe constant pain in L flank c/w renal stones. Plan to obtain CT a/p to eval for stones. Patient with normal labwork including cbc, abdominal panel. u/a showed hematuria c/w stones. Patient states she is not currently menstruating, having just completed her menses. IV toradol administered without improvement. IV dilaudid then provided with improvement. Return precautions given. Plan to f/u outpatient urology. Departure - Departure Disposition: 01 Home, Self Care Clinical Impression: Kidney stones, Vomiting, Abdominal pain Condition: Stable Instructions: Kidney Stones Follow-Up: Karthik Emmanuel MD [Physician No Access] - Prescriptions: Oxycodone HCl/Acetaminophen [Percocet 10-325 mg Tablet] 1 each PO Q4H PRN #10 tablet PRN Reason: Pain Ondansetron Odt [Zofran Odt] 4 mg TL Q6H PRN #10 tablet PRN Reason: Nausea / Vomiting Comments: You were seen in the emergency department for kidney stones. Please follow up with urology outpatient (referral enclosed). return to the ED for new or worsening symptoms or other concerns. Prescription sent electronically to [facility].
[2022-05-19] MEDS ORDERED: HYDROmorphone 0.5 MG/0.5 ML SYRINGE IVP STA (21:08)
--- NOTE | 2022-05-19 22:33 | CT Report ---
PROCEDURE: ABDOMEN/PELVIS WO INDICATIONS: L flank pain, hx kidney stones TECHNIQUE: Noncontrast 5 mm thick sections acquired from the diaphragms to the symphysis. 5 mm coronal and sagi ttal reformats were then performed. For radiation dose reduction, the following was used: automated exposure control, adjustment of mA and/or kV according to patient size. COMPARISON: None. FINDINGS: Image quality: Excellent. Lung bases and heart: Unremarkable. Liver: Unremarkable. Gallbladder and biliary tree: Unremarkable. Spleen: Unremarkable. Pancreas: Unremarkable. Adrenals: Unremarkable. Kidneys and ureters: Mild to moderate left hydronephrosis. Obstructing calculus at the left UPJ measu ring 0.5 cm, (3/32). Nonobstructing left kidney stone at the inferior pole measuring 0.4 cm. Punctate nonobstructing right kidney stones. Bowel and peritoneum: No bowel distension. No pathologic free fluid. Normal appendix Lymph nodes: No central or retroperitoneal adenopathy. Vessels: Unremarkable. PELVIS Reproductive organs: IUD centered in the uterus. Vertically oriented uterus.. Bladder: No stone. Lymph nodes: Unremarkable. Bones: No aggressive osseous abnormality. Other: None. IMPRESSION: 1. Mild to moderate left hydronephrosis. Obstructing calculus at the left UPJ measuring 0.5 cm. 2. Small additional kidney stones bilaterally. 3. No free fluid. Reviewed by: Herve Paris MD on 05/19/2022 10:32 PM PDT Approved by: Herve Paris MD on 05/19/2022 10:32 PM PDT Station ID: [id number]
[2022-05-19] MEDS ORDERED: HYDROmorphone 1 MG/ML CARPUJECT IVP STA ×2 (22:35→23:24)
[2022-05-19 23:43] VITALS: BP 124/84
[2022-05-20] MEDS ORDERED: ONDANSETRON ODT 4 MG Prepack 2 TL PRN (00:17)
[2022-05-20] MEDS ORDERED: oxyCODONE/ACET 5/325 Prepack 4 PO STA (00:17)
== END 2022-05-20 01:00 | disposition home or self-care (01) ==
LOC: ED 19:36
DX: N13.2 Hydronephrosis with renal and ureteral calculous obstruction (principal); Z87.891 Personal history of nicotine dependence
CPT/HCPCS: 36415; 74176; 80053; 81001; 81025; 83690; 85025; 96374; 96375; 96376; 99284; J1170; 81003; 87086